=== PATIENT | female | born 1985 | race Caucasian/White ===

== ENCOUNTER → 2018-07-05 | Outpatient (CLI) | payer BC ==
--- NOTE | 2018-07-05 14:06 | Diagnostic Imaging Report ---
ULTRASOUND: Soft tissues overlying the left hip region TECHNIQUE: Ultrasound evaluation of the soft tissues overlying the left hip region. Color doppler was utilized to supplement the evaluation. HISTORY: Mass, left hip COMPARISON: None DISCUSSION: Within the superficial adipose tissue, 2 round to oval foci with associated posterior shadowing, 1.5 x 0.7 x 1.2 cm and 0.6 x 0.3 x 0.5 cm. IMPRESSION: Probable 2 areas of partially ossified evolving fat necrosis/injection granulomas. Recommend correlation with oblique radiographs of the pelvis after placement of a skin marker overlying the region. Signed by: Dr. Edward Chapman D.O., M.M.M. on 07/05/2018 2:03 PM
== END ==
LOC: US 13:17
PROVIDERS: ATTEND Family Medicine
DX: R22.42 Localized swelling, mass and lump, left lower limb (principal)
CPT/HCPCS: 76882

== ENCOUNTER → 2018-08-30 | Outpatient (CLI) | payer OTHER ==
--- NOTE | 2018-08-30 12:24 | Diagnostic Imaging Report ---
TECHNIQUE: Magnetic resonance imaging of the LEFT HIP/GLUTEAL SOFT TISSUES was performed WITHOUT injected contrast. The exam is optimized to evaluate the described soft tissue abnormality. A skin marker overlies the lateral aspect of the left gluteal region. HISTORY: Lump, numbness COMPARISON: None available. FINDINGS: Bone: The bone marrow signal is heterogeneous, compatible with red marrow conversion, no specific evidence of a focal bone marrow replacing abnormality. No osteonecrosis or acute fracture. Joint: No dislocation or effusion. Soft tissues: Within the superficial adipose tissue underlying the region of the skin marker, a 1.9 x 0.8 cm focus with a thin hypointense rim and homogeneous internal fat signal intensity. Enhancement characteristics cannot be assessed. No significant associated edema. 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 Signed by: Antonina Correia.Amy., M.M.M. on 08/30/2018 12:20 PM
== END ==
LOC: MRI 08:24
PROVIDERS: ATTEND Family Medicine
DX: R20.0 Anesthesia of skin (principal)